=== PATIENT | female | born 1975 | race Caucasian/White ===

== ENCOUNTER 2017-02-26 14:40 | Emergency (ER) | payer OTHER ==
[~2017-02-26] VITALS: Ht 165.1 cm; Wt 83.2 kg
[2017-02-26 14:44] VITALS: BP 113/79
[2017-02-26] MEDS ORDERED: ALPR1TAB6 PO (15:46)
[2017-02-26] MEDS ORDERED: HYOS0.1268 PO (15:46)
[2017-02-26] MEDS ORDERED: OMEP-110 PO (15:46)
[2017-02-26] MEDS ORDERED: MONT10TA6 PO (15:46)
[2017-02-26] MEDS ORDERED: TRAZ50TA18 PO (15:46)
[2017-02-26] MEDS ORDERED: TIZA4TAB PO (15:46)
[2017-02-26] MEDS ORDERED: POTA20TA6 PO (15:46)
[2017-02-26] MEDS ORDERED: PREG75CA PO (15:46)
[2017-02-26] MEDS ORDERED: METO25TA35 PO (15:46)
[2017-02-26] MEDS ORDERED: ESTR0.5T PO (15:46)
[2017-02-26] MEDS ORDERED: MAGN400T36 PO (15:46)
== END 2017-02-26 16:17 | disposition home or self-care (01) ==
LOC: ED 16:15
DX: S83.412A Sprain of medial collateral ligament of left knee, initial encounter (principal); S83.422A Sprain of lateral collateral ligament of left knee, initial encounter; Z87.891 Personal history of nicotine dependence; X50.1XXA Overexertion from prolonged static or awkward postures, initial encounter; Y93.89 Activity, other specified; Y92.89 Other specified places as the place of occurrence of the external cause; Y99.9 Unspecified external cause status
CPT/HCPCS: 99284

== ENCOUNTER 2019-03-07 06:10 | Observation (INO) | payer BC ==
[2019-03-05 13:45] VITALS: BP 115/75
[2019-03-05 14:24] LABS: BASOPHILS # (AUTO) 0.04 x10^3/uL (0-0.1); BASOPHILS % (AUTO) 1 % (0-1); EOSINOPHILS # (AUTO) 0.07 x10^3/uL (0-0.4); EOSINOPHILS % (AUTO) 1 % (1-7); LYMPHOCYTES # (AUTO) 1.74 x10^3/uL (1-3.4); LYMPHOCYTES % (AUTO) 33 % (22-44); MD NO; MEAN CORPUSCULAR HEMOGLOBIN 29.2 pg (27.0-34.8); MEAN CORPUSCULAR VOLUME 88.7 fL (80-100); MEAN PLATELET VOLUME 8.6 fL (7.4-10.4); MONOCYTES # (AUTO) 0.55 x10^3/uL (0.2-0.8); MONOCYTES % (AUTO) 11 % (2-9); NEUTROPHILS # (AUTO) 2.84 x10^3/uL (1.8-6.8); NEUTROPHILS % (AUTO) 54 % (42-75); PLATELET COUNT 233 x10^3/uL (130-400); RED BLOOD COUNT 4.66 x10^6/uL (3.82-5.3); RED CELL DISTRIBUTION WIDTH 13.5 % (9.6-15.2)
[2019-03-05 14:28] LABS: ANION GAP 3 mmol/L (5-15); CALCIUM 9.3 mg/dL (8.5-10.1); CHLORIDE 106 mmol/L (98-107)
[2019-03-05 15:28] LABS: INTERNATIONAL NORMALIZED RATIO 0.95 (0.93-1.1); PROTHROMBIN TIME 10.1 Seconds (9.6-11.5)
[~2019-03-07] VITALS: Ht 165.1 cm; Wt 80.9 kg
[~2019-03-07 06:10] MED LIST: ALPR1TAB6 PO; ESTR0.5T PO; HYOS0.1268 PO; MAGN400T36 PO; METO25TA35 PO; MONT10TA6 PO; OMEP-110 PO; PANT40TA5 PO; POTA20TA6 PO; PREG75CA PO; ROSU40TA PO; TIZA4TAB2 PO; TRAZ50TA66 PO
[2019-03-07] MEDS: SODIUM CHLORIDE 0.9% 1,000 ML IV SCH ×2 (06:15→14:15)
[2019-03-07] MEDS ORDERED: LIDOCAINE 1%, 20ML ONE (06:28)
[2019-03-07] MEDS ORDERED: CEFAZOLIN 1,000 MG ONE (06:28)
[2019-03-07] MEDS ORDERED: CEFAZOLIN PMX 1GM/50ML 50 ML IVPB ONE (06:30)
[2019-03-07] MEDS ORDERED: PROPOFOL 10 MG/ML, 20ML ONE (06:41)
[2019-03-07] MEDS ORDERED: LIDOCAINE-MPF 2% ,5ML ONE (06:41)
[2019-03-07] MEDS ORDERED: ROCURONIUM 10MG/ML,5ML ONE (06:41)
[2019-03-07] MEDS ORDERED: SUCCINYLCHOLINE 20 MG/ML, 10ML ONE (06:41)
[2019-03-07] MEDS ORDERED: FENTANYL PF 100 MCG/2ML ONE (06:41)
[2019-03-07] MEDS ORDERED: MIDAZOLAM 1 MG/ML, 2ML ONE (06:41)
[2019-03-07] MEDS ORDERED: ONDANSETRON 2MG/ML, 2ML ONE (07:12)
[2019-03-07] MEDS ORDERED: KETOROLAC 30 MG/1 ML ONE (07:12)
[2019-03-07] MEDS ORDERED: DEXAMETHASONE 4 MG/ML, 1ML ONE ×2 (07:12)
[2019-03-07] MEDS ORDERED: SUGAMMADEX 200 MG/2 ML IVPush ONE (08:02)
[2019-03-07] MEDS ORDERED: hydrALAzine 20 MG/ML, 1ML IV PRN (09:00)
[2019-03-07] MEDS ORDERED: FENTANYL PF 100 MCG/2ML IV PRN (09:00)
[2019-03-07] MEDS ORDERED: ONDANSETRON 2MG/ML, 2ML IV PRN (09:00)
[2019-03-07] MEDS ORDERED: OXYcodone 5 MG/5 ML ORAL.SOL UDC PO PRN (09:00)
[2019-03-07] MEDS ORDERED: PROMETHAZINE 25 MG/ML, 1ML IV PRN (09:00)
[2019-03-07] MEDS ORDERED: ACETAMINOPHEN 325 MG TABLET PO PRN (09:00)
[2019-03-07] MEDS ORDERED: LABETALOL 5MG/ML, 20ML IV PRN (09:00)
[2019-03-07] MEDS ORDERED: MEPERIDINE/PF 25MG/ML,1ML IVPush PRN (09:00)
[2019-03-07] MEDS ORDERED: HYDROmorphone 2 MG/ML, 1ML IVPush PRN (09:00)
[2019-03-07] MEDS ORDERED: EPHEDRINE 50 MG/ML, 1ML IVPush PRN (09:00)
[2019-03-07] MEDS ORDERED: MEPERIDINE/PF 25MG/ML,1ML ONE (09:26)
[2019-03-07] MEDS ORDERED: ACETAMINOPHEN 650 MG/20.3 ML UDC ONE (09:26)
[2019-03-07] MEDS ORDERED: OXYcodone 5 MG/5 ML ORAL.SOL UDC ONE (09:26)
[2019-03-07] MEDS ORDERED: TRAZODONE 50MG TABLET PO PRN (09:30)
[2019-03-07] MEDS ORDERED: TIZANIDINE 4MG TABLET PO PRN (09:30)
[2019-03-07] MEDS ORDERED: ALPRazolam 1MG TAB PO PRN (09:30)
[2019-03-07] MEDS ORDERED: HOLD MEDICATION MC PRN (09:30)
[2019-03-07] MEDS ORDERED: HYOSCYAMINE 0.125 MG TABLET PO PRN (11:30)
[2019-03-07 12:14] VITALS: BP 107/69
[2019-03-07] MEDS: HYDROcodone/APAP 5/325 TABLET PO PRN ×2 (13:43→19:12)
[2019-03-07] MEDS: CEFAZOLIN PMX 1GM/50ML 50 ML IVPB SCH ×2 (14:04→22:20)
[2019-03-07 19:42] VITALS: BP 105/65
[2019-03-07] MEDS: PREGABALIN 75 MG CAPSULE PO SCH (20:56)
[2019-03-07] MEDS: SODIUM CHLORIDE FLUSH 10ML SYR IVF SCH (20:57)
[2019-03-07] MEDS ORDERED: METOPROLOL TARTRATE 25 MG TABLET PO SCH (21:00)
[2019-03-07] MEDS ORDERED: TEMPLATE NON-FORMULARY MED. (Rosuvastatin Calcium** (Crestor**) 40 MG) PO SCH (21:00)
[2019-03-08 01:36] VITALS: BP 102/62
[2019-03-08] MEDS: HYDROcodone/APAP 5/325 TABLET PO PRN (05:21)
[2019-03-08] MEDS ORDERED: OXYC-302 PO (08:13)
[2019-03-08] MEDS: SODIUM CHLORIDE FLUSH 10ML SYR IVF SCH (08:38)
[2019-03-08] MEDS: PREGABALIN 75 MG CAPSULE PO SCH (08:38)
[2019-03-08] MEDS ORDERED: MAGNESIUM OXIDE 250 MG PO SCH (09:00)
[2019-03-08] MEDS ORDERED: MONTELUKAST 10 MG TABLET PO SCH (09:00)
[2019-03-08] MEDS ORDERED: POTASSIUM CHLORIDE 20 MEQ TAB.ER.PRT PO SCH (09:00)
[2019-03-08] MEDS ORDERED: ESTRADIOL 0.5 MG TABLET PO SCH (09:00)
[2019-03-08] MEDS ORDERED: PANTOPROZOLE 40MG TABLET PO SCH (09:00)
[2019-03-08 10:00] VITALS: BP 113/73
== END 2019-03-08 10:40 | disposition home or self-care (01) ==
LOC: CACL 06:10 → ORIP 09:31 → 5SO 10:45 → DCLOUNGE 03-08 10:30
PROVIDERS: ADMIT Internal Medicine Cardiovascular Disease; ATTEND Internal Medicine Cardiovascular Disease
DX: T82.119A Breakdown (mechanical) of unspecified cardiac electronic device, initial encounter (principal); K21.9 Gastro-esophageal reflux disease without esophagitis; Z79.899 Other long term (current) drug therapy; Z79.01 Long term (current) use of anticoagulants
CPT/HCPCS: 33208; 33235; 36415; 71045; 71046; 80048; 85025; 85610; 85730; 86850; 86900; 86923; 96365; 96366; C1773; C1779; C1785; C1892; G0378; J0330; J0690; J1100; J1885; J2175; J2250; J2405; J2704; J3010; J3490